=== PATIENT | female | born 1945 | race Caucasian/White ===

== ENCOUNTER 2016-07-05 11:00 | Inpatient (IN) | payer MEDICARE, OTHER ==
[~2016-07-05] VITALS: Ht 162.6 cm; Wt 76.4 kg
--- NOTE | ~2016-07-05 | DS ---
PATIENT'S NAME: [facility]ON [facility] AGE: 70 Y [address] ROOM: [address] [address] LOCATION: [facility] ADMIT DATE: 07/12/2016 Discharge Summary DISCHARGE DATE: 07/15/2016 FAMILY PHYSICIAN: Michelle Chawla PA-C ATTENDING PHYSICIAN: Nisreen Anthony ADMIT DIAGNOSES: 1. Lumbar spinal stenosis. 2. Lumbar degenerative disk disease. 3. Lumbar radiculopathy. 4. Lumbar spondylolisthesis. 5. Low back pain. DISCHARGE DIAGNOSES: 1. Lumbar spinal stenosis. 2. Lumbar degenerative disk disease. 3. Lumbar radiculopathy. 4. Lumbar spondylolisthesis. 5. Low back pain. PROCEDURE: Lumbar laminectomy with interbody fusion and posterior pedicle screw instrumentation. HISTORY OF PRESENT ILLNESS: Maddison is a 70-year-old female who has been followed in clinic for conservative treatment for low back pain and lumbar radiculopathy, secondary to lumbar spinal stenosis and spondylolisthesis. She failed conservative treatment measures; at which point, surgical treatment options were discussed. The risks, benefits, and limitations of the procedure were discussed. She freely consented to proceed with surgery. HOSPITAL COURSE: The patient was admitted to same-day surgery, underwent the above-stated procedure, was recovered in the PACU, and then transferred to [address] [place] [address] in stable condition. She was initially treated with IV pain medication and then transitioned to oral pain medication, muscle relaxers, with fairly adequate pain control. She did have an episode of urinary retention. She was straight cathed x1. She was then able to void without difficulty. The patient was afebrile throughout hospital course. Hemoglobin and hematocrit were stable. She did not require blood transfusion. Minimal assisting of her bilateral lower extremities showed no deficits. Her incision was clean, dry, and intact with no signs of infection. She is up walking and ambulating with the assistance of physical therapy and use of a walker. The patient was discharged home on 07/15/2016. DISCHARGE COURSE: The patient is discharged home, reminded of her postop restrictions, care for incision and dressing, and use of her brace. She is to PATIENT'S NAME: MADDISON [facility]IA[facility] AGE: 70 Y [address] ROOM: [address] [address] LOCATION: [facility] ADMIT DATE: 07/12/2016 Discharge Summary DISCHARGE DATE: 07/15/2016 FAMILY PHYSICIAN: Michelle Chawla PA-C ATTENDING PHYSICIAN: Nirseen Anthony follow up with Dr. Anthony in clinic in approximately 10 days. She was sent home with oral pain medication and muscle relaxers. All questions were answered at this time. CARON RODRIGUEZ FOR NISREEN ANTHONY MD JTF/modl /[id number] d: 07/21/16 0257 t: 08/01/16 1155, DISCHARGE SUMMARY
--- NOTE | ~2016-07-05 | CON ---
PATIENT'S NAME: [facility] AGE: 70 Y [address] ROOM: [place] [address] LOCATION: G3 ADMIT DATE: 07/12/2016 Consultation DISCHARGE DATE: FAMILY PHYSICIAN: Michelle Chawla PA-C ATTENDING PHYSICIAN: Bhavin Anthony DATE OF CONSULTATION: 07/13/2016 REFERRING PHYSICIAN: CARON Faye GASTROENTEROLOGY CONSULTATION HISTORY OF PRESENT ILLNESS: Maddison Powers is a 70-year-old female, who was rehabilitating after her back surgery. I was called by Dr. Gordon, Hospitalist Service in view of patient's inability to eat. Apparently patient choked on food and was unable to swallow for a while, and I was asked to see her in regard to possibility of endoscopy and food disimpaction. As I was on my way to see the patient on the floor, Dr. Gordon called me again saying that patient vomited the food, and now was able to swallow and was given some "soda" which went down easy. I was on the way to patient's room and the patient was walking in the hallway, when I interviewed the patient, and she states she was feeling just fine and "a ball of spaghetti" had gotten stuck which she threw back, but otherwise denied any problem with dysphagia to foods before or any heartburn or any previous swallowing difficulties. She stated this was an isolated episode, and she does not want any further evaluation, and will contact us if needed in the future. PAST MEDICAL HISTORY: None available. PAST SURGICAL HISTORY: Recent laminectomy and previous knee surgery. MEDICATIONS: As noted in MAR. PHYSICAL EXAMINATION: GENERAL: Elderly female, in no acute distress. She was walking the hallways initially. VITAL SIGNS: Her vital signs are stable with a pulse of 68 per minute, temperature 97.8, blood pressure 130/70, and saturation 93%. HEENT: Nonicteric sclerae. Pupils round and reactive. Atraumatic and normocephalic. PATIENT'S NAME: EMILY [facility] AGE: 70 Y [address] ROOM: [place] [address] LOCATION: [facility] ADMIT DATE: 07/12/2016 Consultation DISCHARGE DATE: FAMILY PHYSICIAN: Michelle Chawla PA-C ATTENDING PHYSICIAN: Bhavin Anthony NECK: Supple without palpable nodes. CHEST: Clear to auscultation. HEART: S1 and S2 normal. ABDOMEN: Otherwise soft and benign. ASSESSMENT AND PLAN: A 70-year-old female with history of acute dysphagia, now resolved post vomiting suspected food impaction. The patient denies any previous problems of similar nature and presently is concentrating on recovering from her recent laminectomy. At this point, she is not interested in any endoscopic evaluation which is reasonable considering her major surgery. She is encouraged and advised to contact us and follow up in the GI Clinic if she wants further evaluation done with endoscopy. Thank you for this consultation. ELIDA ORR MD AM/usha /[id number] d: 07/13/162119 t: 08/03/16 0735, CONSULTATION REPORT
--- NOTE | ~2016-07-05 | OR ---
PATIENT'S NAME: [facility] AGE: 70 Y [address] ROOM: [place] [address] LOCATION: [facility] ADMIT DATE: 07/12/2016 OR/Procedure Report DISCHARGE DATE: FAMILY PHYSICIAN: Michelle Chawla PA-C ATTENDING PHYSICIAN: Bhavin Anthony SURGEON: Bhavin Anthony MD COMPENSATION AND HRIS ANALYST: DATE OF PROCEDURE: 07/12/2016 PREOPERATIVE DIAGNOSES: 1. Lumbar degenerative disk disease. 2. Lumbar spondylolisthesis. 3. Lumbar spinal stenosis. 4. Lumbar neurogenic claudication. 5. Lumbar radiculopathy. 6. Low back pain. POSTOPERATIVE DIAGNOSES: 1. Lumbar degenerative disk disease. 2. Lumbar spondylolisthesis. 3. Lumbar spinal stenosis. 4. Lumbar neurogenic claudication. 5. Lumbar radiculopathy. 6. Low back pain. PROCEDURES PERFORMED: 1. Lumbar laminectomy of L4 with decompression of the L4-5 interspace. 2. Lumbar fusion, combined technique, L4-5, with transforaminal lumbar interbody fusion plus posterolateral fusion, L4-5. 3. Placement of spinal prosthetic cage, L4-5 interspace. 4. Placement of pedicle screw instrumentation, nonsegmental, single nicolasa, bilateral, L4 to L5. 5. Halma of bone marrow aspirate, transpedicular technique, right L4 vertebral body. CUSTOMER LIAISON: CARON Bryan ANESTHESIA: General. ESTIMATED BLOOD LOSS: 250 mL. COMPLICATIONS: None. SPECIMENS: None. PATIENT'S NAME: [facility] AGE: 70 Y [address] ROOM: [place] [address] LOCATION: [facility] ADMIT DATE: 07/12/2016 OR/Procedure Report DISCHARGE DATE: FAMILY PHYSICIAN: Michelle Chawla PA-C ATTENDING PHYSICIAN: Bhavin Anthony FINDINGS: Severe stenosis with facet arthropathy, L4-5. INSTRUMENTATION: Globus Creo pedicle screw fixation and caliber cage. OPERATIVE INDICATIONS: The patient is a 70-year-old female whom I have followed for symptomatic lumbar degenerative disk disease with spondylolisthesis and stenosis and subsequent neurogenic claudication with low back pain. The patient failed conservative treatment and was offered surgery in the form of a lumbar decompression and fusion. After the details, risks, benefits, and options were explained, the patient freely consented to surgery. DESCRIPTION OF PROCEDURE: After the patient was correctly identified and operative site initialed, she was taken back to the operating room and placed in the supine position. She was placed with all bony prominences well padded and protected. The back was prepped and draped in the usual sterile fashion. She received IV antibiotics prior to surgery. A time-out was taken to verify the patient and the procedure. 10 mL of 0.25% Marcaine with epinephrine was injected in line with the incision. A 10-blade was used to make a midline incision over the operative levels. Dissection was taken down through the skin and subcutaneous tissue with electrocautery. The fascia was opened in the midline, and subperiosteal dissection was performed to expose the posterior elements. The transverse processes were exposed in the lateral gutters. A Kerrison was placed on the lamina of L4 and verified at the L4-5 level. The spinous process and lamina were resected then with a Leksell rongeur. This bone was morselized for local graft. Kerrison and bur were used to complete the midline lateral recess decompression. The left-sided facet was taken down completely to decompress and expose the nerve root as well as the foraminal region. After decompression was complete, gentle medial retraction of the dura allowed identification of the disk space through the transforaminal region on the left. The disk was incised and debrided using pituitaries, curettes, and disk space maría elena. After diskectomy was complete, the endplates were denuded of their cartilage, rasped, and prepared for fusion. The disk space was packed with a sheet of BMP with local bone graft. A second piece was placed into the cage, impacted into the disk space, and recessed below the posterior vertebral margin. The cage was then expanded. Next, a reference ring clamp was attached to the L3 spinous process, and the O- arm was brought in for a reference scan. Under stealth navigation, the pedicles were localized, and screws were placed at L4 and L5 bilaterally. All screws had excellent purchase. Confirmation scan demonstrated good placement of the pedicle screws. The rods were reduced to the screws. Set caps were placed and tightened to the appropriate torque. A high-speed bur was used to decorticate the right-sided transverse processes of L4 and L5. Bone marrow aspirate obtained from the transpedicular technique of L4 combined with Actifuse and bone graft from the spine was packed in the right lateral gutter for fusion. DuraSeal was injected over the disk space to isolate from the PATIENT'S NAME: FOZIA DIA[facility] AGE: 70 Y [address] ROOM: [place] [address] LOCATION: [facility] ADMIT DATE: 07/12/2016 OR/Procedure Report DISCHARGE DATE: FAMILY PHYSICIAN: Michelle Chawla PA-C ATTENDING PHYSICIAN: Bhavin Anthony spinal canal. 1 g of vancomycin powder was divided between the superficial and deep tissues after irrigation. The wound was repaired in layers with #1 Vicryl on the fascia, 0 Vicryl on the subcutaneous tissue, and niraj on the skin. Sterile dressing was applied, and the patient was awakened from anesthesia and taken to the recovery room in stable condition. A surgical scheduler was necessary in this procedure for evacuation of blood during decompression and assistance with placement of the pedicle screw fixation for stabilization and TLIF cage for fusion. MD VIRGINIA HERRON/usha /[id number] d: 07/12/16 1137 t: 07/20/16 1433, OPERATIVE SUMMARY
[2016-07-06] MEDS ORDERED: ZOLOFT25 MG PO (10:05)
[2016-07-06] MEDS ORDERED: MOBIC15 MG PO (10:05)
[2016-07-06] MEDS ORDERED: AMBIEN10 MG PO (10:06)
[2016-07-06] MEDS ORDERED: CALCIUM 600 +1 EAC6 PO (10:06)
[2016-07-06] MEDS ORDERED: MULTI VITAMIN1 EACH PO (10:06)
[2016-07-06] MEDS ORDERED: COL-RITE50 MG PO (10:07)
[2016-07-06] MEDS ORDERED: VITAMIN D31000 UNI1 PO (10:08)
[2016-07-06] MEDS ORDERED: ASPIRIN EC81 MG PO (10:19)
[2016-07-12 07:28] LABS: PROTIME 10.7 SECONDS (9.6-11.1)
[2016-07-13 05:56] LABS: BASOPHIL % 0.1 %; HEMATOCRIT 33.9 % (33.0-46.0); HEMOGLOBIN 10.8 g/dL (10.0-15.0); IMMATURE GRANULOCYTE % 0.3 %; LYMPHOCYTE # 1.4 K/uL (0.8-4.0); LYMPHOCYTE % 13.2 %; MCH 31.2 pg (27.0-34.0); MCHC 31.9 gm/dL (32.0-36.5); MONOCYTE # 0.9 K/uL (0.0-1.0); MONOCYTE % 8.6 %; MPV 9.3 fl (9.4-12.4); NEUTROPHIL # (ANC) 8.4 K/uL (1.8-7.8); NEUTROPHIL % 77.8 %; NRBC % 0 /100WBC (0-0.00); PLATELET COUNT 276 K/uL (150-450); RBC 3.46 M/uL (3.50-5.50); RDW-CV 13.2 % (11.9-14.6); WBC 10.8 K/uL (4.0-11.0)
[2016-07-15] MEDS ORDERED: NORCO 5-325 TA1 EACH PO (11:04)
[2016-07-15] MEDS ORDERED: FLEXERIL10 MG PO (11:05)
== END 2016-07-15 12:16 | disposition disaster alternative care site (69) | DRG 460 ==
LOC: G3N 07-12 05:46 → GMSU 07-14 13:33
PROVIDERS: ADMIT Orthopaedic Surgery Orthopaedic Surgery of the Spine
DX: M48.06 Spinal stenosis, lumbar region (principal); M41.9 Scoliosis, unspecified; F32.9 Major depressive disorder, single episode, unspecified; M51.16 Intervertebral disc disorders with radiculopathy, lumbar region; M43.16 Spondylolisthesis, lumbar region; Z96.653 Presence of artificial knee joint, bilateral; Z79.82 Long term (current) use of aspirin; M15.9 Polyosteoarthritis, unspecified; K59.09 Other constipation; Z86.73 Personal history of transient ischemic attack (TIA), and cerebral infarction without residual deficits; I49.3 Ventricular premature depolarization; R33.9 Retention of urine, unspecified; R13.10 Dysphagia, unspecified
CPT/HCPCS: C1713; J0131; J0171; J0690; J1100; J1170; J2001; J2250; J2405; J3010; J3360; J3370; J3480; J7030; P9045